=== PATIENT | male | born 1955 | race Caucasian/White ===

== ENCOUNTER 2020-04-19 22:45 | Inpatient (IN) | payer OTHER ==
[~2020-04-19] VITALS: Ht 185.4 cm; Wt 177.6 kg
[~2020-04-19 22:45] MED LIST: ASPI-650 PO; ATEN100T PO; DOXY100T23 PO; FURO-92 PO; HYDR-3241 PO; LISI-170 PO; NITR0.4T41 SL; POTA20TA14 PO; WARF2TAB PO
--- NOTE | 2020-04-19 22:50 | NUR ---
assessment made. seen by ERP. orders made.
[2020-04-19] MEDS ORDERED: MORPHINE SULFATE 4 MG/ML, 1ML ONE (22:54)
[2020-04-19] MEDS ORDERED: ONDANSETRON 2MG/ML, 2ML ONE (22:54)
[2020-04-19] MEDS ORDERED: MORPHINE SULFATE 4 MG/ML, 1ML IVPush PRN (23:00)
[2020-04-19] MEDS ORDERED: ONDANSETRON 2MG/ML, 2ML IVPush ONE (23:00)
--- NOTE | 2020-04-19 23:05 | NUR ---
patient states he is battling with Diarrhea for almost at month now. negative for C diff.
--- NOTE | 2020-04-19 23:05 | NUR ---
patient medicated for pain and nausea. X ray at bedside.
--- NOTE | 2020-04-19 23:30 | NUR ---
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
[2020-04-19 23:40] LABS: BASOPHILS # (AUTO) 0.05 x10^3/uL (0-0.1); BASOPHILS % (AUTO) 1 % (0-1); EOSINOPHILS # (AUTO) 0.28 x10^3/uL (0-0.4); EOSINOPHILS % (AUTO) 3 % (1-7); LYMPHOCYTES # (AUTO) 1.56 x10^3/uL (1-3.4); LYMPHOCYTES % (AUTO) 17 % (22-44); MD NO; MEAN CORPUSCULAR HEMOGLOBIN 28.1 pg (27.5-34.5); MEAN CORPUSCULAR HGB CONC 32.5 g/dL (33.2-36.2); MEAN CORPUSCULAR VOLUME 86.5 fL (81-97); MEAN PLATELET VOLUME 7.7 fL (7.4-10.4); MONOCYTES # (AUTO) 0.85 x10^3/uL (0.2-0.8); MONOCYTES % (AUTO) 9 % (2-9); NEUTROPHILS # (AUTO) 6.46 x10^3/uL (1.8-6.8); NEUTROPHILS % (AUTO) 70 % (42-75); PLATELET COUNT 286 x10^3/uL (130-400); RED BLOOD COUNT 4.48 x10^6/uL (4.38-5.82); RED CELL DISTRIBUTION WIDTH 15.5 % (9.4-14.8)
[2020-04-19 23:46] LABS: ALBUMIN 3.1 g/dL (3.4-5.0); ANION GAP 6 mmol/L (5-15); CALCIUM 8.5 mg/dL (8.5-10.1); CHLORIDE 107 mmol/L (98-107); CREATININE 0.85 mg/dL (0.7-1.3)
[2020-04-19 23:50] LABS: TROPONIN I < 0.015 ng/mL (0.000-0.045)
[2020-04-19] MEDS ORDERED: APIX5TAB PO (23:53)
[2020-04-19] MEDS ORDERED: ATOR40TA78 PO (23:53)
[2020-04-19] MEDS ORDERED: SPIR25TA5 PO (23:54)
[2020-04-19] MEDS ORDERED: METO50TA82 PO (23:54)
--- NOTE | 2020-04-20 00:16 | NUR ---
RESTING QUE[employer], NSR MONITOR, REQUESTING RECORDS FROM [facility]. VERY PLEASANT GENTLEMAN.
--- NOTE | 2020-04-20 00:27 | NUR ---
RECORDS REQ FROM [facility].
--- NOTE | 2020-04-20 00:51 | NUR ---
ok to drink per ERP. water provided.
--- NOTE | 2020-04-20 01:39 | NUR ---
all labs resulted. chart up for MD to recheck. patient sleeping, VSS
--- NOTE | 2020-04-20 01:48 | NUR ---
ERP at bedside.
[2020-04-20] MEDS ORDERED: MORPHINE SULFATE 4 MG/ML, 1ML ONE (01:57)
--- NOTE | 2020-04-20 02:02 | NUR ---
states pain is coming back. MD aware. 2nd dose of 4 mg Morphine given per ERP.
--- NOTE | 2020-04-20 02:37 | NUR ---
hospitalist at bedside for patient evaluation and to write admission orders.
--- NOTE | 2020-04-20 02:46 | NUR ---
bed assigned. report to FENG Isaac.
[2020-04-20] MEDS ORDERED: DOCUSATE 100 MG CAPSULE PO PRN (03:00)
[2020-04-20] MEDS ORDERED: hydrALAzine 20 MG/ML, 1ML IVPush PRN (03:00)
[2020-04-20] MEDS ORDERED: NITROGLYCERIN 0.4 MG BOTTLE (25 TABS) SL PRN (03:00)
[2020-04-20] MEDS ORDERED: ONDANSETRON 2MG/ML, 2ML IVPush PRN (03:00)
[2020-04-20 03:10] VITALS: BP 169/88
[2020-04-20] MEDS: ASPIRIN 325 MG TABLET EC PO SCH (04:23)
[2020-04-20 07:51] VITALS: BP 119/76
[2020-04-20] MEDS: FUROSEMIDE 40 MG TABLET PO SCH ×2 (08:37→17:34)
[2020-04-20] MEDS: POTASSIUM CHLORIDE 20 MEQ TAB.ER.PRT PO SCH ×2 (08:37→17:34)
[2020-04-20] MEDS: SPIRONOLACTONE 25 MG TABLET PO SCH (08:37)
[2020-04-20] MEDS: METOPROLOL TARTRATE 50 MG TAB PO SCH (08:37)
[2020-04-20] MEDS: APIXABAN 5 MG TABLET PO SCH ×2 (08:37→21:29)
[2020-04-20] MEDS: LISINOPRIL 20 MG TABLET PO SCH (08:38)
[2020-04-20 13:02] LABS: TROPONIN I < 0.015 ng/mL (0.000-0.045)
[2020-04-20 13:09] VITALS: BP 106/70
[2020-04-20] MEDS: CEFTRIAXONE PMX 1GM/50ML 50 ML IV SCH (14:39)
[2020-04-20] MEDS: AZITHROMYCIN 500 MG in SODIUM CHLORIDE 0.9% 250 ML IV SCH (15:51)
[2020-04-20 20:36] VITALS: BP 91/55
[2020-04-20 21:29] VITALS: BP 99/61
[2020-04-20] MEDS: ATORVASTATIN 40 MG TABLET PO SCH (21:29)
[2020-04-21 02:15] VITALS: BP 92/58
[2020-04-21 03:44] LABS: ANION GAP 7 mmol/L (5-15); CALCIUM 8.4 mg/dL (8.5-10.1); CHLORIDE 106 mmol/L (98-107); CREATININE 1.23 mg/dL (0.7-1.3)
[2020-04-21 03:58] LABS: BASOPHILS # (AUTO) 0.04 x10^3/uL (0-0.1); BASOPHILS % (AUTO) 0 % (0-1); EOSINOPHILS # (AUTO) 0.04 x10^3/uL (0-0.4); EOSINOPHILS % (AUTO) 0 % (1-7); LYMPHOCYTES # (AUTO) 0.56 x10^3/uL (1-3.4); LYMPHOCYTES % (AUTO) 5 % (22-44); MD NO; MEAN CORPUSCULAR HEMOGLOBIN 28.4 pg (27.5-34.5); MEAN CORPUSCULAR HGB CONC 32.9 g/dL (33.2-36.2); MEAN CORPUSCULAR VOLUME 86.4 fL (81-97); MONOCYTES # (AUTO) 0.63 x10^3/uL (0.2-0.8); MONOCYTES % (AUTO) 5 % (2-9); NEUTROPHILS # (AUTO) 10.41 x10^3/uL (1.8-6.8); NEUTROPHILS % (AUTO) 89 % (42-75); PLATELET COUNT 232 x10^3/uL (130-400); RED BLOOD COUNT 4.24 x10^6/uL (4.38-5.82); RED CELL DISTRIBUTION WIDTH 15.3 % (9.4-14.8)
[2020-04-21] MEDS: ASPIRIN 325 MG TABLET EC PO SCH (05:37)
[2020-04-21] MEDS: ALBUTEROL SULFATE 2.5 MG/3 ML NPPB SCH ×4 (07:00→20:31)
[2020-04-21] MEDS: BUDESONIDE 0.5 MG/2 ML INHA INH SCH ×3 (07:00→20:32)
[2020-04-21 07:13] VITALS: BP 107/70
[2020-04-21] MEDS ORDERED: LISINOPRIL 10 MG TABLET ONE (07:30)
[2020-04-21] MEDS: APIXABAN 5 MG TABLET PO SCH ×2 (07:32→22:31)
[2020-04-21] MEDS: FUROSEMIDE 40 MG TABLET PO SCH ×2 (07:32→16:53)
[2020-04-21] MEDS: POTASSIUM CHLORIDE 20 MEQ TAB.ER.PRT PO SCH (07:32)
[2020-04-21] MEDS: METOPROLOL TARTRATE 50 MG TAB PO SCH (07:32)
[2020-04-21] MEDS: SPIRONOLACTONE 25 MG TABLET PO SCH (07:32)
[2020-04-21] MEDS: LISINOPRIL 20 MG TABLET PO SCH (07:32)
[2020-04-21] MEDS ORDERED: MAGNESIUM SULFATE PMX 2GM/50ML 50 ML IV ONE (09:00)
[2020-04-21] MEDS ORDERED: HYDROcodone/APAP 5/325 TABLET ONE (09:04)
[2020-04-21 14:08] VITALS: BP 100/64
[2020-04-21] MEDS: CEFTRIAXONE PMX 1GM/50ML 50 ML IV SCH (14:34)
[2020-04-21] MEDS: AZITHROMYCIN 500 MG in SODIUM CHLORIDE 0.9% 250 ML IV SCH (15:13)
[2020-04-21 19:42] VITALS: BP 117/75
[2020-04-21] MEDS: ATORVASTATIN 40 MG TABLET PO SCH (22:31)
[2020-04-22 00:54] VITALS: BP 106/67
[2020-04-22] MEDS: METOPROLOL SUCCINATE 50 MG TAB.ER.24H PO SCH (05:20)
[2020-04-22] MEDS: ASPIRIN 325 MG TABLET EC PO SCH (05:21)
[2020-04-22 05:42] LABS: ANION GAP 6 mmol/L (5-15); CALCIUM 8.8 mg/dL (8.5-10.1); CHLORIDE 106 mmol/L (98-107); CREATININE 0.92 mg/dL (0.7-1.3)
[2020-04-22 05:45] LABS: BASOPHILS # (AUTO) 0.01 x10^3/uL (0-0.1); BASOPHILS % (AUTO) 0 % (0-1); EOSINOPHILS % (AUTO) 3 % (1-7); LYMPHOCYTES # (AUTO) 0.94 x10^3/uL (1-3.4); LYMPHOCYTES % (AUTO) 14 % (22-44); MD NO; MEAN CORPUSCULAR HEMOGLOBIN 27.9 pg (27.5-34.5); MEAN CORPUSCULAR HGB CONC 32.4 g/dL (33.2-36.2); MEAN CORPUSCULAR VOLUME 86.1 fL (81-97); MEAN PLATELET VOLUME 8.1 fL (7.4-10.4); MONOCYTES # (AUTO) 0.99 x10^3/uL (0.2-0.8); MONOCYTES % (AUTO) 14 % (2-9); NEUTROPHILS # (AUTO) 4.77 x10^3/uL (1.8-6.8); NEUTROPHILS % (AUTO) 69 % (42-75); PLATELET COUNT 209 x10^3/uL (130-400); RED BLOOD COUNT 4.12 x10^6/uL (4.38-5.82); RED CELL DISTRIBUTION WIDTH 15.4 % (9.4-14.8)
[2020-04-22 07:19] VITALS: BP 110/69
[2020-04-22] MEDS: ALBUTEROL SULFATE 2.5 MG/3 ML NPPB SCH ×4 (07:50→20:00)
[2020-04-22] MEDS ORDERED: REGADENOSON 0.4 MG/5 ML SYRINGE ONE (08:31)
[2020-04-22] MEDS: POTASSIUM CHLORIDE 20 MEQ TAB.ER.PRT PO SCH (09:56)
[2020-04-22] MEDS: FUROSEMIDE 40 MG TABLET PO SCH ×2 (09:57→18:15)
[2020-04-22] MEDS: APIXABAN 5 MG TABLET PO SCH ×2 (09:57→22:12)
[2020-04-22 13:14] VITALS: BP 105/70
[2020-04-22] MEDS: CEFTRIAXONE PMX 1GM/50ML 50 ML IV SCH (15:09)
[2020-04-22] MEDS: AZITHROMYCIN 500 MG in SODIUM CHLORIDE 0.9% 250 ML IV SCH (15:48)
[2020-04-22] MEDS: BUDESONIDE 0.5 MG/2 ML INHA INH SCH (20:00)
[2020-04-22 20:37] VITALS: BP 96/58
[2020-04-22] MEDS: ATORVASTATIN 40 MG TABLET PO SCH (22:12)
[2020-04-23 02:00] VITALS: BP 119/78
[2020-04-23] MEDS: METOPROLOL SUCCINATE 50 MG TAB.ER.24H PO SCH (06:32)
[2020-04-23] MEDS: ASPIRIN 325 MG TABLET EC PO SCH (06:32)
[2020-04-23] MEDS: ALBUTEROL SULFATE 2.5 MG/3 ML NPPB SCH ×3 (07:40→21:30)
[2020-04-23] MEDS: FUROSEMIDE 40 MG TABLET PO SCH ×2 (07:52→16:35)
[2020-04-23 08:04] VITALS: BP_SYST 103; BP_SYST 155; BP_DIAS 66; BP_DIAS 87
[2020-04-23] MEDS: APIXABAN 5 MG TABLET PO SCH ×2 (08:20→21:02)
[2020-04-23] MEDS: POTASSIUM CHLORIDE 20 MEQ TAB.ER.PRT PO SCH (08:21)
[2020-04-23] MEDS: BUDESONIDE 0.5 MG/2 ML INHA INH SCH ×2 (09:00→21:30)
[2020-04-23 13:36] VITALS: BP 100/66
[2020-04-23] MEDS: CEFTRIAXONE PMX 1GM/50ML 50 ML IV SCH (15:42)
[2020-04-23] MEDS: AZITHROMYCIN 500 MG in SODIUM CHLORIDE 0.9% 250 ML IV SCH (16:32)
[2020-04-23 19:08] VITALS: BP 107/73
[2020-04-23] MEDS: ATORVASTATIN 40 MG TABLET PO SCH (21:02)
[2020-04-24 01:35] VITALS: BP 120/75
[2020-04-24] MEDS: ALBUTEROL SULFATE 2.5 MG/3 ML NPPB SCH ×3 (06:49→22:32)
[2020-04-24] MEDS: BUDESONIDE 0.5 MG/2 ML INHA INH SCH ×2 (06:49→22:32)
[2020-04-24] MEDS: ASPIRIN 325 MG TABLET EC PO SCH (07:28)
[2020-04-24] MEDS: METOPROLOL SUCCINATE 50 MG TAB.ER.24H PO SCH (07:28)
[2020-04-24 08:15] VITALS: BP 129/79
[2020-04-24] MEDS: APIXABAN 5 MG TABLET PO SCH ×2 (08:56→22:11)
[2020-04-24] MEDS: FUROSEMIDE 40 MG TABLET PO SCH ×2 (08:56→17:31)
[2020-04-24] MEDS: POTASSIUM CHLORIDE 20 MEQ TAB.ER.PRT PO SCH (08:56)
[2020-04-24 13:05] VITALS: BP 126/84
[2020-04-24] MEDS ORDERED: CEFD300C37 PO (14:29)
[2020-04-24] MEDS ORDERED: BUDE0.5A INH (14:29)
[2020-04-24] MEDS ORDERED: POTA20TA6 PO (14:29)
[2020-04-24] MEDS ORDERED: ACET500T64 PO (14:29)
[2020-04-24] MEDS ORDERED: METO-93 PO (14:29)
[2020-04-24] MEDS ORDERED: DOCU100C33 PO (14:29)
[2020-04-24] MEDS ORDERED: ALBU2.5V NPPB (14:29)
[2020-04-24] MEDS ORDERED: AZIT500T10 PO (14:29)
[2020-04-24 15:51] LABS: BASOPHILS # (AUTO) 0.05 x10^3/uL (0-0.1); BASOPHILS % (AUTO) 1 % (0-1); EOSINOPHILS # (AUTO) 0.38 x10^3/uL (0-0.4); EOSINOPHILS % (AUTO) 6 % (1-7); LYMPHOCYTES # (AUTO) 0.99 x10^3/uL (1-3.4); LYMPHOCYTES % (AUTO) 14 % (22-44); MD NO; MEAN CORPUSCULAR HGB CONC 32.6 g/dL (33.2-36.2); MEAN CORPUSCULAR VOLUME 85.7 fL (81-97); MEAN PLATELET VOLUME 8.1 fL (7.4-10.4); MONOCYTES # (AUTO) 0.85 x10^3/uL (0.2-0.8); MONOCYTES % (AUTO) 12 % (2-9); NEUTROPHILS # (AUTO) 4.61 x10^3/uL (1.8-6.8); NEUTROPHILS % (AUTO) 67 % (42-75); PLATELET COUNT 278 x10^3/uL (130-400); RED BLOOD COUNT 4.64 x10^6/uL (4.38-5.82); RED CELL DISTRIBUTION WIDTH 15.3 % (9.4-14.8)
[2020-04-24 15:53] LABS: ANION GAP 3 mmol/L (5-15); CALCIUM 9.4 mg/dL (8.5-10.1); CHLORIDE 105 mmol/L (98-107)
[2020-04-24 15:55] LABS: CREATININE 0.98 mg/dL (0.7-1.3)
[2020-04-24] MEDS: CEFTRIAXONE PMX 1GM/50ML 50 ML IV SCH (16:02)
[2020-04-24] MEDS: AZITHROMYCIN 500 MG in SODIUM CHLORIDE 0.9% 250 ML IV SCH (17:31)
[2020-04-24 19:53] VITALS: BP_SYST 102; BP_SYST 106; BP_DIAS 72
[2020-04-24] MEDS: ATORVASTATIN 40 MG TABLET PO SCH (21:23)
[2020-04-24] MEDS: ACETAMINOPHEN 500 MG TABLET PO PRN (21:24)
[2020-04-25 01:56] VITALS: BP 103/70
[2020-04-25] MEDS: METOPROLOL SUCCINATE 50 MG TAB.ER.24H PO SCH (05:29)
[2020-04-25] MEDS: ASPIRIN 325 MG TABLET EC PO SCH (05:29)
[2020-04-25] MEDS: ALBUTEROL SULFATE 2.5 MG/3 ML NPPB SCH (07:00)
[2020-04-25] MEDS: BUDESONIDE 0.5 MG/2 ML INHA INH SCH (07:00)
[2020-04-25 09:35] VITALS: BP 113/76
[2020-04-25] MEDS: APIXABAN 5 MG TABLET PO SCH ×2 (09:36→20:32)
[2020-04-25] MEDS: POTASSIUM CHLORIDE 20 MEQ TAB.ER.PRT PO SCH (09:36)
[2020-04-25] MEDS: FUROSEMIDE 40 MG TABLET PO SCH ×2 (09:36→17:19)
[2020-04-25] MEDS: ALBUTEROL HFA 90 MCG/SPRAY INH SCH ×2 (14:39→20:32)
[2020-04-25] MEDS: CEFTRIAXONE PMX 1GM/50ML 50 ML IV SCH (15:50)
[2020-04-25 16:07] VITALS: BP 113/66
[2020-04-25 16:30] VITALS: BP 114/68
[2020-04-25] MEDS: AZITHROMYCIN 500 MG in SODIUM CHLORIDE 0.9% 250 ML IV SCH (17:19)
[2020-04-25 18:50] VITALS: BP 101/60
[2020-04-25] MEDS: SERTRALINE 50MG TABLET PO SCH (20:31)
[2020-04-25] MEDS: ATORVASTATIN 40 MG TABLET PO SCH (20:32)
[2020-04-26 00:32] VITALS: BP 110/61
[2020-04-26] MEDS: ACETAMINOPHEN 325 MG TABLET PO PRN (01:00)
[2020-04-26 06:14] VITALS: BP 116/67
[2020-04-26] MEDS: METOPROLOL SUCCINATE 50 MG TAB.ER.24H PO SCH (06:16)
[2020-04-26] MEDS: ASPIRIN 325 MG TABLET EC PO SCH (06:16)
[2020-04-26 08:08] VITALS: BP 133/89
[2020-04-26] MEDS: POTASSIUM CHLORIDE 20 MEQ TAB.ER.PRT PO SCH (10:09)
[2020-04-26] MEDS: APIXABAN 5 MG TABLET PO SCH ×2 (10:09→22:21)
[2020-04-26] MEDS: FUROSEMIDE 40 MG TABLET PO SCH ×2 (10:09→17:04)
[2020-04-26] MEDS: ALBUTEROL HFA 90 MCG/SPRAY INH SCH ×3 (10:16→22:22)
[2020-04-26] MEDS ORDERED: CALCIUM CARBONATE 500 MG TAB.CHEW PO PRN (12:30)
[2020-04-26 12:52] VITALS: BP 125/71
[2020-04-26] MEDS: CEFTRIAXONE PMX 1GM/50ML 50 ML IV SCH (15:58)
[2020-04-26] MEDS: AZITHROMYCIN 500 MG in SODIUM CHLORIDE 0.9% 250 ML IV SCH (17:04)
[2020-04-26] MEDS: FLUTICASONE FUROATE 100MCG/INH INH SCH (17:04)
[2020-04-26 22:10] VITALS: BP 102/52
[2020-04-26] MEDS: ATORVASTATIN 40 MG TABLET PO SCH (22:20)
[2020-04-26] MEDS: SERTRALINE 50MG TABLET PO SCH (22:21)
[2020-04-26] MEDS: FAMOTIDINE 20 MG TABLET PO SCH (22:21)
[2020-04-26] MEDS: ACETAMINOPHEN 500 MG TABLET PO PRN (22:23)
[2020-04-27 02:19] VITALS: BP 110/67
[2020-04-27] MEDS: ASPIRIN 325 MG TABLET EC PO SCH (05:09)
[2020-04-27] MEDS: ACETAMINOPHEN 325 MG TABLET PO PRN ×2 (05:09→14:19)
[2020-04-27] MEDS: METOPROLOL SUCCINATE 50 MG TAB.ER.24H PO SCH (05:10)
[2020-04-27 08:39] VITALS: BP 107/72
[2020-04-27] MEDS: FAMOTIDINE 20 MG TABLET PO SCH ×2 (09:53→20:50)
[2020-04-27] MEDS: FLUTICASONE FUROATE 100MCG/INH INH SCH (09:53)
[2020-04-27] MEDS: FUROSEMIDE 40 MG TABLET PO SCH ×2 (09:53→16:46)
[2020-04-27] MEDS: ALBUTEROL HFA 90 MCG/SPRAY INH SCH ×3 (09:53→20:50)
[2020-04-27] MEDS: POTASSIUM CHLORIDE 20 MEQ TAB.ER.PRT PO SCH (09:54)
[2020-04-27] MEDS: APIXABAN 5 MG TABLET PO SCH ×2 (09:54→20:50)
[2020-04-27 15:26] VITALS: BP 111/71
[2020-04-27 19:50] VITALS: BP 101/63
[2020-04-27] MEDS: SERTRALINE 50MG TABLET PO SCH (20:50)
[2020-04-27] MEDS: ACETAMINOPHEN 500 MG TABLET PO PRN (20:50)
[2020-04-27] MEDS: ATORVASTATIN 40 MG TABLET PO SCH (20:50)
[2020-04-28 00:46] VITALS: BP 133/80
[2020-04-28 04:37] LABS: CREATININE 0.97 mg/dL (0.7-1.3)
[2020-04-28] MEDS: METOPROLOL SUCCINATE 50 MG TAB.ER.24H PO SCH (05:27)
[2020-04-28] MEDS: ASPIRIN 325 MG TABLET EC PO SCH (05:27)
[2020-04-28 07:41] VITALS: BP 122/79
[2020-04-28] MEDS: APIXABAN 5 MG TABLET PO SCH ×2 (10:14→20:21)
[2020-04-28] MEDS: ALBUTEROL HFA 90 MCG/SPRAY INH SCH ×3 (10:14→21:00)
[2020-04-28] MEDS: FAMOTIDINE 20 MG TABLET PO SCH ×2 (10:14→20:22)
[2020-04-28] MEDS: FLUTICASONE FUROATE 100MCG/INH INH SCH (10:14)
[2020-04-28] MEDS: POTASSIUM CHLORIDE 20 MEQ TAB.ER.PRT PO SCH (10:14)
[2020-04-28] MEDS: FUROSEMIDE 40 MG TABLET PO SCH ×2 (10:14→16:12)
[2020-04-28] MEDS: ACETAMINOPHEN 325 MG TABLET PO PRN ×2 (10:29→16:21)
[2020-04-28 13:30] VITALS: BP 109/70
[2020-04-28 19:14] VITALS: BP 101/64
[2020-04-28] MEDS: ATORVASTATIN 40 MG TABLET PO SCH (20:22)
[2020-04-28] MEDS: SERTRALINE 50MG TABLET PO SCH (20:22)
[2020-04-28] MEDS: ACETAMINOPHEN 500 MG TABLET PO PRN (20:22)
[2020-04-29 00:59] VITALS: BP 110/69
[2020-04-29 05:36] LABS: BASOPHILS # (AUTO) 0.05 x10^3/uL (0-0.1); BASOPHILS % (AUTO) 1 % (0-1); EOSINOPHILS # (AUTO) 0.35 x10^3/uL (0-0.4); EOSINOPHILS % (AUTO) 4 % (1-7); LYMPHOCYTES # (AUTO) 2.49 x10^3/uL (1-3.4); LYMPHOCYTES % (AUTO) 27 % (22-44); MD NO; MEAN CORPUSCULAR HEMOGLOBIN 27.7 pg (27.5-34.5); MEAN CORPUSCULAR HGB CONC 32.1 g/dL (33.2-36.2); MEAN CORPUSCULAR VOLUME 86.2 fL (81-97); MEAN PLATELET VOLUME 8.1 fL (7.4-10.4); MONOCYTES # (AUTO) 0.57 x10^3/uL (0.2-0.8); MONOCYTES % (AUTO) 6 % (2-9); NEUTROPHILS # (AUTO) 5.79 x10^3/uL (1.8-6.8); NEUTROPHILS % (AUTO) 63 % (42-75); PLATELET COUNT 339 x10^3/uL (130-400); RED BLOOD COUNT 4.83 x10^6/uL (4.38-5.82); RED CELL DISTRIBUTION WIDTH 15.2 % (9.4-14.8)
[2020-04-29 05:41] LABS: CHLORIDE 103 mmol/L (98-107)
[2020-04-29 05:45] LABS: ALBUMIN 3.5 g/dL (3.4-5.0); ANION GAP 7 mmol/L (5-15); CALCIUM 9.4 mg/dL (8.5-10.1); CREATININE 0.98 mg/dL (0.7-1.3)
[2020-04-29] MEDS: ASPIRIN 325 MG TABLET EC PO SCH (06:17)
[2020-04-29] MEDS: METOPROLOL SUCCINATE 50 MG TAB.ER.24H PO SCH (06:17)
[2020-04-29] MEDS: APIXABAN 5 MG TABLET PO SCH ×2 (07:24→20:22)
[2020-04-29] MEDS: FAMOTIDINE 20 MG TABLET PO SCH ×2 (07:24→20:22)
[2020-04-29] MEDS: ACETAMINOPHEN 325 MG TABLET PO PRN (07:24)
[2020-04-29] MEDS: POTASSIUM CHLORIDE 20 MEQ TAB.ER.PRT PO SCH (07:24)
[2020-04-29] MEDS: ALBUTEROL HFA 90 MCG/SPRAY INH SCH ×3 (07:25→20:23)
[2020-04-29] MEDS: FLUTICASONE FUROATE 100MCG/INH INH SCH (07:25)
[2020-04-29] MEDS: FUROSEMIDE 40 MG TABLET PO SCH ×2 (07:25→17:10)
[2020-04-29 09:50] VITALS: BP 110/74
[2020-04-29 14:57] VITALS: BP 115/75
[2020-04-29 20:14] VITALS: BP 106/71
[2020-04-29] MEDS: SERTRALINE 50MG TABLET PO SCH (20:22)
[2020-04-29] MEDS: ATORVASTATIN 40 MG TABLET PO SCH (20:22)
[2020-04-29] MEDS: ACETAMINOPHEN 500 MG TABLET PO PRN (20:23)
[2020-04-30 01:46] VITALS: BP 114/75
[2020-04-30] MEDS: ACETAMINOPHEN 325 MG TABLET PO PRN ×2 (01:48→05:43)
[2020-04-30] MEDS: METOPROLOL SUCCINATE 50 MG TAB.ER.24H PO SCH (05:41)
[2020-04-30] MEDS: ASPIRIN 325 MG TABLET EC PO SCH (05:41)
[2020-04-30 07:04] VITALS: BP 108/74
[2020-04-30] MEDS: POTASSIUM CHLORIDE 20 MEQ TAB.ER.PRT PO SCH (09:35)
[2020-04-30] MEDS: ALBUTEROL HFA 90 MCG/SPRAY INH SCH ×3 (09:35→19:45)
[2020-04-30] MEDS: FLUTICASONE FUROATE 100MCG/INH INH SCH (09:35)
[2020-04-30] MEDS: APIXABAN 5 MG TABLET PO SCH ×2 (09:35→19:46)
[2020-04-30] MEDS: FAMOTIDINE 20 MG TABLET PO SCH ×2 (09:35→19:46)
[2020-04-30] MEDS: FUROSEMIDE 40 MG TABLET PO SCH ×2 (09:35→16:39)
[2020-04-30 13:52] VITALS: BP 130/67
[2020-04-30 18:45] VITALS: BP 105/72
[2020-04-30] MEDS: ATORVASTATIN 40 MG TABLET PO SCH (19:46)
[2020-04-30] MEDS: SERTRALINE 50MG TABLET PO SCH (19:46)
[2020-05-01 00:48] VITALS: BP 117/74
[2020-05-01] MEDS: ACETAMINOPHEN 500 MG TABLET PO PRN (00:52)
[2020-05-01] MEDS: METOPROLOL SUCCINATE 50 MG TAB.ER.24H PO SCH (06:04)
[2020-05-01] MEDS: ASPIRIN 325 MG TABLET EC PO SCH (06:04)
[2020-05-01 06:05] VITALS: BP 115/77
[2020-05-01 06:34] VITALS: BP 131/86
[2020-05-01] MEDS ORDERED: FAMOTIDINE 40 MG TABLET ONE (07:19)
[2020-05-01] MEDS: APIXABAN 5 MG TABLET PO SCH ×2 (07:27→20:04)
[2020-05-01] MEDS: FAMOTIDINE 20 MG TABLET PO SCH ×2 (07:27→20:04)
[2020-05-01] MEDS: ACETAMINOPHEN 325 MG TABLET PO PRN ×2 (07:27→16:31)
[2020-05-01] MEDS: FUROSEMIDE 40 MG TABLET PO SCH ×2 (07:28→16:31)
[2020-05-01] MEDS: FLUTICASONE FUROATE 100MCG/INH INH SCH (07:28)
[2020-05-01] MEDS: POTASSIUM CHLORIDE 20 MEQ TAB.ER.PRT PO SCH (07:28)
[2020-05-01] MEDS: ALBUTEROL HFA 90 MCG/SPRAY INH SCH ×3 (07:29→20:04)
[2020-05-01 12:29] VITALS: BP 101/68
[2020-05-01 19:01] VITALS: BP 104/66
[2020-05-01] MEDS: SERTRALINE 50MG TABLET PO SCH (20:04)
[2020-05-01] MEDS: ATORVASTATIN 40 MG TABLET PO SCH (20:04)
[2020-05-02 00:45] VITALS: BP 113/74
[2020-05-02 06:52] VITALS: BP 110/64
[2020-05-02] MEDS: METOPROLOL SUCCINATE 50 MG TAB.ER.24H PO SCH (07:13)
[2020-05-02] MEDS: ASPIRIN 325 MG TABLET EC PO SCH (07:13)
[2020-05-02] MEDS ORDERED: FAMOTIDINE 40 MG TABLET ONE (08:02)
[2020-05-02] MEDS: FAMOTIDINE 20 MG TABLET PO SCH ×2 (08:08→19:59)
[2020-05-02] MEDS: FLUTICASONE FUROATE 100MCG/INH INH SCH (08:08)
[2020-05-02] MEDS: POTASSIUM CHLORIDE 20 MEQ TAB.ER.PRT PO SCH (08:09)
[2020-05-02] MEDS: APIXABAN 5 MG TABLET PO SCH ×2 (08:09→19:59)
[2020-05-02] MEDS: ALBUTEROL HFA 90 MCG/SPRAY INH SCH ×3 (08:09→20:04)
[2020-05-02] MEDS: FUROSEMIDE 40 MG TABLET PO SCH ×2 (08:09→16:39)
[2020-05-02 12:10] VITALS: BP 102/61
[2020-05-02 19:35] VITALS: BP 102/60
[2020-05-02] MEDS: ACETAMINOPHEN 500 MG TABLET PO PRN (19:58)
[2020-05-02] MEDS: ATORVASTATIN 40 MG TABLET PO SCH (19:59)
[2020-05-02] MEDS: SERTRALINE 50MG TABLET PO SCH (19:59)
[2020-05-03 03:06] VITALS: BP 109/73
[2020-05-03] MEDS: METOPROLOL SUCCINATE 50 MG TAB.ER.24H PO SCH (06:10)
[2020-05-03] MEDS: ASPIRIN 325 MG TABLET EC PO SCH (06:10)
[2020-05-03 06:13] VITALS: BP 107/73
[2020-05-03 08:36] VITALS: BP 119/80
[2020-05-03] MEDS: FUROSEMIDE 40 MG TABLET PO SCH ×2 (09:31→16:59)
[2020-05-03] MEDS: POTASSIUM CHLORIDE 20 MEQ TAB.ER.PRT PO SCH (09:32)
[2020-05-03] MEDS: FAMOTIDINE 20 MG TABLET PO SCH ×2 (09:32→21:46)
[2020-05-03] MEDS: APIXABAN 5 MG TABLET PO SCH ×2 (09:32→21:46)
[2020-05-03] MEDS: FLUTICASONE FUROATE 100MCG/INH INH SCH (09:34)
[2020-05-03] MEDS: ALBUTEROL HFA 90 MCG/SPRAY INH SCH ×3 (09:34→21:46)
[2020-05-03] MEDS: ACETAMINOPHEN 500 MG TABLET PO PRN (12:47)
[2020-05-03] MEDS: ACETAMINOPHEN 325 MG TABLET PO PRN (12:50)
[2020-05-03 14:15] VITALS: BP 98/70
[2020-05-03 20:14] VITALS: BP 98/61
[2020-05-03] MEDS: ATORVASTATIN 40 MG TABLET PO SCH (21:46)
[2020-05-03] MEDS: SERTRALINE 50MG TABLET PO SCH (21:46)
[2020-05-04 02:02] VITALS: BP 109/71
[2020-05-04 05:24] VITALS: BP 105/71
[2020-05-04] MEDS: METOPROLOL SUCCINATE 50 MG TAB.ER.24H PO SCH (05:27)
[2020-05-04] MEDS: ASPIRIN 325 MG TABLET EC PO SCH (05:27)
[2020-05-04 06:06] LABS: CREATININE 0.98 mg/dL (0.7-1.3)
[2020-05-04 07:38] VITALS: BP 113/77
[2020-05-04] MEDS: FUROSEMIDE 40 MG TABLET PO SCH ×2 (11:12→17:12)
[2020-05-04] MEDS: POTASSIUM CHLORIDE 20 MEQ TAB.ER.PRT PO SCH (11:12)
[2020-05-04] MEDS: APIXABAN 5 MG TABLET PO SCH ×2 (11:13→20:12)
[2020-05-04] MEDS: FLUTICASONE FUROATE 100MCG/INH INH SCH (11:13)
[2020-05-04] MEDS: ALBUTEROL HFA 90 MCG/SPRAY INH SCH ×3 (11:13→21:51)
[2020-05-04] MEDS: FAMOTIDINE 20 MG TABLET PO SCH ×2 (11:13→20:12)
[2020-05-04] MEDS: ACETAMINOPHEN 325 MG TABLET PO PRN ×2 (11:30→20:12)
[2020-05-04 13:08] VITALS: BP 112/75
[2020-05-04 19:40] VITALS: BP 97/60
[2020-05-04] MEDS: ATORVASTATIN 40 MG TABLET PO SCH (20:12)
[2020-05-04] MEDS: SERTRALINE 50MG TABLET PO SCH (20:12)
[2020-05-05 00:11] VITALS: BP 98/60
[2020-05-05 06:40] VITALS: BP 115/67
[2020-05-05] MEDS: ASPIRIN 325 MG TABLET EC PO SCH (06:45)
[2020-05-05] MEDS: METOPROLOL SUCCINATE 50 MG TAB.ER.24H PO SCH (06:45)
[2020-05-05] MEDS: ACETAMINOPHEN 325 MG TABLET PO PRN ×2 (10:28→20:54)
[2020-05-05] MEDS: FLUTICASONE FUROATE 100MCG/INH INH SCH (10:28)
[2020-05-05] MEDS: ALBUTEROL HFA 90 MCG/SPRAY INH SCH ×3 (10:28→21:00)
[2020-05-05] MEDS: FAMOTIDINE 20 MG TABLET PO SCH ×2 (10:28→20:54)
[2020-05-05] MEDS: APIXABAN 5 MG TABLET PO SCH ×2 (10:28→20:54)
[2020-05-05] MEDS: POTASSIUM CHLORIDE 20 MEQ TAB.ER.PRT PO SCH (10:28)
[2020-05-05] MEDS: FUROSEMIDE 40 MG TABLET PO SCH ×2 (10:30→17:12)
[2020-05-05 13:09] VITALS: BP 107/62
[2020-05-05 19:49] VITALS: BP 95/67
[2020-05-05] MEDS: ATORVASTATIN 40 MG TABLET PO SCH (20:54)
[2020-05-05] MEDS: SERTRALINE 50MG TABLET PO SCH (20:54)
[2020-05-06 00:39] VITALS: BP 113/64
[2020-05-06] MEDS: ASPIRIN 325 MG TABLET EC PO SCH (06:38)
[2020-05-06] MEDS: METOPROLOL SUCCINATE 50 MG TAB.ER.24H PO SCH (06:39)
[2020-05-06 08:00] VITALS: BP 98/53
[2020-05-06] MEDS: ALBUTEROL HFA 90 MCG/SPRAY INH SCH ×3 (09:01→20:43)
[2020-05-06] MEDS: FUROSEMIDE 40 MG TABLET PO SCH ×2 (09:02→16:40)
[2020-05-06] MEDS: APIXABAN 5 MG TABLET PO SCH ×2 (09:02→20:44)
[2020-05-06] MEDS: FLUTICASONE FUROATE 100MCG/INH INH SCH (09:02)
[2020-05-06] MEDS: POTASSIUM CHLORIDE 20 MEQ TAB.ER.PRT PO SCH (09:02)
[2020-05-06 10:13] VITALS: BP 119/74
[2020-05-06 13:03] VITALS: BP 114/67
[2020-05-06 19:37] VITALS: BP 93/61
[2020-05-06] MEDS: SERTRALINE 50MG TABLET PO SCH (20:44)
[2020-05-06] MEDS: FAMOTIDINE 10 MG TAB PO SCH (20:44)
[2020-05-06] MEDS: GABAPENTIN 300 MG CAPSULE PO SCH (20:44)
[2020-05-06] MEDS: ATORVASTATIN 40 MG TABLET PO SCH (20:44)
[2020-05-07] MEDS: ACETAMINOPHEN 500 MG TABLET PO PRN ×2 (01:15→20:26)
[2020-05-07 01:19] VITALS: BP 103/56
[2020-05-07] MEDS: METOPROLOL SUCCINATE 50 MG TAB.ER.24H PO SCH (05:35)
[2020-05-07] MEDS: ASPIRIN 325 MG TABLET EC PO SCH (05:35)
[2020-05-07] MEDS: FUROSEMIDE 40 MG TABLET PO SCH ×2 (05:35→14:22)
[2020-05-07 06:48] VITALS: BP 111/65
[2020-05-07] MEDS: ALBUTEROL HFA 90 MCG/SPRAY INH SCH ×3 (09:26→20:26)
[2020-05-07] MEDS: FLUTICASONE FUROATE 100MCG/INH INH SCH (09:26)
[2020-05-07] MEDS: POTASSIUM CHLORIDE 20 MEQ TAB.ER.PRT PO SCH (09:26)
[2020-05-07] MEDS: FAMOTIDINE 10 MG TAB PO SCH ×2 (09:26→20:26)
[2020-05-07] MEDS: APIXABAN 5 MG TABLET PO SCH ×2 (09:27→20:26)
[2020-05-07] MEDS: GABAPENTIN 300 MG CAPSULE PO SCH ×3 (09:27→20:26)
[2020-05-07 12:20] VITALS: BP 110/73
[2020-05-07 19:24] VITALS: BP 102/56
[2020-05-07] MEDS: SERTRALINE 50MG TABLET PO SCH (20:26)
[2020-05-07] MEDS: ATORVASTATIN 40 MG TABLET PO SCH (20:26)
[2020-05-08 00:12] VITALS: BP 107/63
[2020-05-08] MEDS: METOPROLOL SUCCINATE 50 MG TAB.ER.24H PO SCH (05:43)
[2020-05-08] MEDS: ASPIRIN 325 MG TABLET EC PO SCH (05:43)
[2020-05-08 08:25] VITALS: BP 112/64
[2020-05-08] MEDS: POTASSIUM CHLORIDE 20 MEQ TAB.ER.PRT PO SCH (08:58)
[2020-05-08] MEDS: FAMOTIDINE 10 MG TAB PO SCH (08:58)
[2020-05-08] MEDS: APIXABAN 5 MG TABLET PO SCH (08:58)
[2020-05-08] MEDS: FUROSEMIDE 40 MG TABLET PO SCH ×2 (08:58→15:09)
[2020-05-08] MEDS: GABAPENTIN 300 MG CAPSULE PO SCH ×2 (08:58→15:09)
[2020-05-08] MEDS: ALBUTEROL HFA 90 MCG/SPRAY INH SCH ×2 (08:59→15:09)
[2020-05-08] MEDS: FLUTICASONE FUROATE 100MCG/INH INH SCH (08:59)
== END 2020-05-08 16:26 | DRG 291 ==
LOC: ED 04-20 00:05 → INTOOBSV 04-20 02:13 → EDIP 04-20 02:13 → 5SO 04-20 03:02 → OBSVTOIN 04-21 10:25 → 4NW 04-25 14:49 → 4NE 04-26 15:06 → 3N 04-27 13:37
PROVIDERS: ADMIT Hospitalist; ATTEND Family Medicine
DX: I11.0 Hypertensive heart disease with heart failure (principal); J18.9 Pneumonia, unspecified organism; J96.21 Acute and chronic respiratory failure with hypoxia; Z68.43 Body mass index [BMI] 50.0-59.9, adult; I50.43 Acute on chronic combined systolic (congestive) and diastolic (congestive) heart failure; I42.9 Cardiomyopathy, unspecified; E66.01 Morbid (severe) obesity due to excess calories; D64.9 Anemia, unspecified; E78.5 Hyperlipidemia, unspecified; I25.10 Atherosclerotic heart disease of native coronary artery without angina pectoris; I25.2 Old myocardial infarction; I48.0 Paroxysmal atrial fibrillation; G47.33 Obstructive sleep apnea (adult) (pediatric); M19.011 Primary osteoarthritis, right shoulder; Z20.828 Contact with and (suspected) exposure to other viral communicable diseases; Z79.01 Long term (current) use of anticoagulants; Z79.82 Long term (current) use of aspirin; Z82.49 Family history of ischemic heart disease and other diseases of the circulatory system; Z83.3 Family history of diabetes mellitus; Z86.711 Personal history of pulmonary embolism; Z86.718 Personal history of other venous thrombosis and embolism; Z87.891 Personal history of nicotine dependence; Z79.899 Other long term (current) drug therapy
CPT/HCPCS: 36415; 36600; 70450; 71045; 78452; 80048; 80069; 82040; 82565; 82803; 83735; 83880; 84100; 84145; 84443; 84484; 85025; 87635; 93005; 93015; 94640; 96374; 96375; C8929; G0378; J0456; J0696; J2405; J2785; J7613; J7626; Q9957; A9502; J2270; J3475; J7050